=== PATIENT | male | born 1965 | race American Indian/Alaskan Native ===

== ENCOUNTER 2020-07-11 06:25 | Day surgery (SDC) | payer BC ==
[2020-07-11] MEDS ORDERED: ASPIRIN EC 325 MG TAB PO ONE (07:02)
[2020-07-11 07:25] LABS: Basophils % (Auto) 0.8 % (0.0-1.8); Eosinophils # (Auto) 0.2 K/mm3 (0.0-0.4); Eosinophils % (Auto) 4.2 % (0.0-4.3); Hematocrit 45.5 % (35.5-45.6); Hemoglobin 15.5 gm/dl (11.8-15.2); Lymphocytes # (Auto) 1.6 K/mm3 (1.2-5.4); Lymphocytes % (Auto) 29.5 % (13.4-35.0); Mean Corpuscular HGB Conc 34 % (32-34); Mean Corpuscular Volume 102 fl (84-94); Monocytes # (Auto) 0.8 K/mm3 (0.0-0.8); Monocytes % (Auto) 14.4 % (0.0-7.3); Platelet Count 219 K/mm3 (140-440); Red Blood Count 4.48 M/mm3 (3.65-5.03); Red Cell Distribution Width 13.4 % (13.2-15.2)
[2020-07-11 07:34] LABS: INR 0.96 (0.87-1.13)
[2020-07-11 07:35] LABS: Partial Thromboplastin Time 24.8 Sec. (24.2-36.6)
[2020-07-11 07:36] LABS: BUN/Creatinine Ratio 12; Blood Urea Nitrogen 14 mg/dL (9-20); Calcium 9.5 mg/dL (8.4-10.2); Hemolysis Index 13
[2020-07-11] MEDS ORDERED: SODIUM CHLORIDE 0.9% 500 ML 500 ML IV SCH (08:00)
[2020-07-11] MEDS ORDERED: fentaNYL 100 MCG/2 ML INJ ONE (08:44)
[2020-07-11] MEDS ORDERED: MIDAZOLAM 2 MG/2 ML INJ ONE (08:44)
[2020-07-11] MEDS ORDERED: LIDOCAINE (2%) 20 MG/1 ML VIAL 20 ML MDV INFILTRATI ONE (08:47)
[2020-07-11] MEDS ORDERED: HEPARIN 10,000 UNITS/10 ML VIAL ONE (08:47)
[2020-07-11] MEDS ORDERED: VERAPAMIL 5 MG/2 ML INJ ONE (08:47)
[2020-07-11] MEDS ORDERED: NITROGLYCERIN SYRINGE 3 ML ONE (08:47)
[2020-07-11] MEDS ORDERED: HEPARIN/NS 5000 UNIT/500ML 1,000 ML IR ONE (08:47)
[2020-07-11] MEDS ORDERED: NITROGLYCERIN 600 MCG/3 ML SYRINGE ART-SHEATH ONE (09:23)
[2020-07-11] MEDS ORDERED: HYDROcodone/ACETAMINOPHEN 5-325 MG TAB PO PRN (10:04)
[2020-07-11] MEDS ORDERED: traMADol 50 MG TAB PO PRN (10:04)
--- NOTE | 2020-07-11 10:09 | Short Stay Summary ---
Short Stay Documentation Date of service: 07/11/20 - History H&P: obtained from office - Allergies and Medications Current Medications: Allergies No Known Allergies Allergy (Verified 07/11/20 07:02) Home Medications Medication Instructions Recorded Confirmed Last Taken Type Fenofibrate 160 mg PO DAILY 07/11/20 07/11/20 07/10/20 History 160 mg Metformin HCl [Glucophage] 2,000 mg PO HS 07/11/20 07/11/20 07/10/20 History 2000 mg Semaglutide [Rybelsus] 1 tab PO DAILY 07/11/20 07/11/20 07/10/20 History 1 tab Simvastatin 40 mg PO HS 07/11/20 07/11/20 07/10/20 History 40 mg Testosterone Cypionate 200 mg IM Q3W 07/11/20 07/11/20 06/16/20 History [Depo-Testosterone] 200 mg dilTIAZem HCL [Diltiazem 24Hr ER 240 mg PO HS 07/11/20 07/11/20 07/10/20 History (Xr)] 240 mg glipiZIDE XL [Glucotrol Xl] 10 mg PO HS 07/11/20 07/11/20 07/10/20 History 10 mg lisinopriL [Lisinopril] 10 mg PO HS 07/11/20 07/11/20 07/10/20 History 10 mg Active Medications Sodium Chloride (Nacl 0.9% 500 Ml) 500 mls @ 50 mls/hr IV DIRECT CARLIE Stop: 07/11/20 17:59 Last Admin: 07/11/20 08:15 Dose: 50 mls/hr Documented by: - Brief post op/procedure progress note Date of procedure: 07/11/20 Pre-op diagnosis: abnormal stress test Post-op diagnosis: other (normal coronaries) Procedure: C - see dictated cath report Anesthesia: local Estimated blood loss: none Condition: stable - Disposition Condition at discharge: Good Disposition: DC-01 TO HOME OR SELFCARE - Discharge Diagnoses (1) HTN (hypertension) Status: Chronic (2) Diabetes Status: Chronic (3) Normal coronary angiogram Status: Chronic Short Stay Discharge Plan Activity: advance as tolerated Diet: low fat, low cholesterol, low salt, diabetic Wound: open to air, keep clean and dry, per your surgeon's advice Additional Instructions: hold home metformin for 48Hr post-procedure, resume metformin on 07/13/2020 Follow up with: KEVEN CARLSON MD [Primary Care Provider] - 7 Days LIZ THACKER MD [Staff Physician] - 7 Days ([place] office, 07/17/2020 @ 2:30PM)
[2020-07-11 12:48] VITALS: BP 143/74
--- NOTE | 2020-07-11 12:54 | Cardiac Catherization Report ---
ORDERING PHYSICIAN: Dr. Ramone Beaulieu. PERFORMED BY: Dr. Mccarty. CLINICAL INFORMATION: This is a 55-year-old gentleman with morbid obesity, hypertension, diabetes, cholesterol, had a stress test shows decrease in EF with mild TID, with chest pains, here for left heart catheterization. Left heart catheterization performed via the right radial artery, sterile technique, local anesthesia, 6-[place] radial sheath inserted. The patient was done with moderate sedation started 9:19, finished at 9:27, 8 minutes of moderate sedation. Left system engaged with JL3.5 catheter, left main is large and patent, bifurcates into medium to large caliber LAD that is patent from proximally and distally. Diagonal 1 is a medium caliber and patent. Circumflex is a large caliber vessel, patent, bifurcates into large OM1 that is patent. [place] circumflex is a medium caliber vessel, patent. RCA engaged with JR4, is a large dominant vessel, patent from proximally and distally. PDA, PLV are medium caliber vessel that is patent. LV gram done in [place]WANDAN and SAINI shows normal LV function, EF 55-60%. LVEDP 60 mmHg, LV is 140. Aortic is 130/79. No gradient across the aortic valve on pullback. 5-[place]igerian catheters all taken over guidewire, 6-[place]ian radial sheath was discontinued. Radial band applied. No hematoma, no bleeding. SUMMARY: Left main patent, LAD patent, diagonal patent, circumflex patent, OM1 patent, RCA large, dominant, patent. PDA, PLV patent. Normal LV function. Continue risk factor modification for hypertension, diabetes, cholesterol, and morbid obesity. Discussed this with the patient in detail. JOB# [id number] MARY/NICOLE
--- NOTE | 2020-07-12 11:39 | Electrocardiograph Report ---
[facility] Test Date: 2020-07-11 Test Time: 07:57:24 Pat Name: JULIÁN PINTO SR Department: Room: Gender: M [employer]ing Wheel [employer]aker: KATHY : 1965 Requested By: GERMAN HERNÁNDEZ Order Number: [id number] Reading MD: Manuela Durant Measurements Intervals [place] Rate: 59 P: 63 LA: 178 QRS: 61 QRSD: 101 T: 18 QT: 424 QTc: 421 Interpretive Statements Sinus bradycardia No previous ECG available for comparison Electronically Signed On 07-12-2020 11:39:33 EDT by Manuela Durant
== END 2020-07-11 13:15 | disposition home or self-care (01) ==
LOC: CATHLABREC 06:25
PROVIDERS: ATTEND Internal Medicine
DX: R94.39 Abnormal result of other cardiovascular function study (principal); R07.89 Other chest pain; E66.01 Morbid (severe) obesity due to excess calories; I10 Essential (primary) hypertension; E11.9 Type 2 diabetes mellitus without complications; Z79.899 Other long term (current) drug therapy; E78.00 Pure hypercholesterolemia, unspecified; M19.90 Unspecified osteoarthritis, unspecified site; Z98.890 Other specified postprocedural states; Z82.49 Family history of ischemic heart disease and other diseases of the circulatory system; Z68.37 Body mass index [BMI] 37.0-37.9, adult
CPT/HCPCS: 36415; 80048; 85025; 85610; 85730; 93005; 93458; C1894; J1644; J2250; J3010; J7040; Q9967